=== PATIENT | female | born 1965 | race Caucasian/White ===

== ENCOUNTER → 2016-08-02 | Outpatient (CLI) | payer BC ==
--- NOTE | 2016-08-02 21:20 | US ---
EXAMINATION TYPE: US venous doppler duplex LE RT DATE OF EXAM: 08/02/2016 8:24 PM COMPARISON: NONE CLINICAL HISTORY: M79.661 Pain in right lower leg. Right calf pain. Patient had right knee surgery 3 times, last was in early s. Patient is not on any blood thinners and no hx of blood clots. SIDE PERFORMED: Right TECHNIQUE: The lower extremity deep venous system is examined utilizing real time linear array sonog melodie with graded compression, doppler sonography and color-flow sonography. VESSELS IMAGED: External Iliac Vein (EIV) Common Femoral Vein Deep Femoral Vein Greater Saphenous Vein * Femoral Vein Popliteal Vein Small Saphenous Vein * Proximal Calf Veins (* superficial vessels) Right Leg: Appears negative for DVT. IMPRESSION: Normal exam. No evidence of deep venous thrombosis in the right leg.
== END | disposition home or self-care (01) ==
LOC: RADUSMAIN 19:04
PROVIDERS: ATTEND Family Medicine
DX: M79.604 Pain in right leg (principal)